=== PATIENT | male | born 1950 | race Caucasian/White ===

== ENCOUNTER 2017-12-22 21:28 | Inpatient (IN) | payer OTHER ==
[~2017-12-22] VITALS: Ht 190.5 cm; Wt 105.0 kg
[2017-12-22] MEDS ORDERED: SODIUM CHLORIDE 0.9% 1,000ML IVBOLUS ONE (22:00)
[2017-12-22] MEDS ORDERED: PIPERACILLIN/TAZO/PMX 3.375GM 50 ML IVPB ONE (22:00)
[2017-12-22] MEDS ORDERED: VANCOMYCIN PER PHARMACY IV ONE (22:00)
[2017-12-22] MEDS ORDERED: PIPERACILLIN/TAZO/PMX 3.375GM 50 ML ONE (22:07)
[2017-12-22 22:16] LABS: BASOPHILS # (AUTO) 0.03 x10^3/uL (0-0.1); BASOPHILS % (AUTO) 0 % (0-1); EOSINOPHILS # (AUTO) 0.06 x10^3/uL (0-0.4); EOSINOPHILS % (AUTO) 0 % (1-7); LYMPHOCYTES % (AUTO) 13 % (22-44); MD NO; MEAN CORPUSCULAR HEMOGLOBIN 30.8 pg (27.5-34.5); MEAN CORPUSCULAR HGB CONC 34.4 g/dL (33.2-36.2); MEAN CORPUSCULAR VOLUME 89.4 fL (81-97); MEAN PLATELET VOLUME 7.8 fL (7.4-10.4); MONOCYTES % (AUTO) 8 % (2-9); NEUTROPHILS # (AUTO) 9.76 x10^3/uL (1.8-6.8); NEUTROPHILS % (AUTO) 79 % (42-75); PLATELET COUNT 367 x10^3/uL (130-400); RED BLOOD COUNT 4.34 x10^6/uL (4.38-5.82)
[2017-12-22 22:20] LABS: INTERNATIONAL NORMALIZED RATIO 1.02 (0.93-1.1); PROTHROMBIN TIME 10.5 Seconds (9.6-11.5)
[2017-12-22 22:26] LABS: ALANINE AMINOTRANSFERASE 17 U/L (12-78); ALBUMIN 2.9 g/dL (3.4-5.0); ANION GAP 7 mmol/L (5-15); CALCIUM 8.6 mg/dL (8.5-10.1); CHLORIDE 98 mmol/L (98-107); CREATININE 1.04 mg/dL (0.7-1.3)
[2017-12-22 22:29] LABS: ALKALINE PHOSPHATASE 107 U/L (45-117); BILIRUBIN,TOTAL 0.5 mg/dL (0.2-1.0); TOTAL PROTEIN 7.4 g/dL (6.4-8.2)
[2017-12-22] MEDS ORDERED: VANCOMYCIN 1,700 MG in SODIUM CHLORIDE 0.9% 250 ML IV ONE (22:30)
[2017-12-22] MEDS ORDERED: INSULIN REGULAR 100 UNITS/ML, 3ML VIAL IVPush ONE (23:00)
[2017-12-22] MEDS ORDERED: INSULIN REGULAR 100 UNITS/ML, 3ML VIAL ONE (23:02)
[2017-12-23 01:25] VITALS: BP 134/74
[2017-12-23 01:30] VITALS: BP 134/74
[2017-12-23] MEDS ORDERED: DOCUSATE 100 MG CAPSULE PO PRN (01:30)
[2017-12-23] MEDS ORDERED: PROMETHAZINE 25 MG/ML, 1ML IM PRN (01:30)
[2017-12-23] MEDS ORDERED: POLYETHYLENE GLYCOL 17 GM PACKET PO PRN (01:30)
[2017-12-23] MEDS ORDERED: LABETALOL 5MG/ML, 20ML IVPush PRN (01:30)
[2017-12-23] MEDS ORDERED: morphine SULFATE 10 MG/ML, 1ML IVPush PRN (01:30)
[2017-12-23] MEDS ORDERED: BISACODYL 10 MG SUPP PR PRN (01:30)
[2017-12-23] MEDS ORDERED: ONDANSETRON ODT 4 MG PO PRN (01:30)
[2017-12-23] MEDS ORDERED: ACETAMINOPHEN 325 MG TABLET PO PRN (01:30)
[2017-12-23] MEDS ORDERED: OXYcodone IR 5MG TABLET PO PRN (01:30)
[2017-12-23] MEDS ORDERED: GABAPENTIN 300 MG CAPSULE PO PRN (01:30)
[2017-12-23] MEDS: ENOXAPARIN 40 MG/0.4 ML SQ SCH ×2 (01:30→19:59)
[2017-12-23] MEDS ORDERED: ONDANSETRON 2MG/ML, 2ML IVPush PRN (01:30)
[2017-12-23] MEDS ORDERED: VANCOMYCIN PER PHARMACY MC PRN (02:00)
[2017-12-23] MEDS ORDERED: INSULIN GLARGINE 100 UNITS/ML, PEN SQ-INSULIN SCH (02:00)
[2017-12-23 02:08] LABS: HCT (SEDRATE) 38.8 % (39.2-51.8)
[2017-12-23 02:30] LABS: C-REACTIVE PROTEIN, QUANT 5.8 mg/dL (0.02-0.49); FREE T4 (FREE THYROXINE) 1.17 ng/dL (0.76-1.46); THYROID STIMULATING HORMONE 2.85 mIU/L (0.358-3.740)
[2017-12-23] MEDS: SODIUM CHLORIDE 0.9% 1,000 ML IV SCH ×3 (03:03→15:29)
[2017-12-23] MEDS: PIPERACILLIN/TAZO/PMX 3.375GM 50 ML IV SCH ×3 (04:37→18:21)
[2017-12-23] MEDS ORDERED: PHARMACOKINETIC CONSULTATION MC ONE (05:00)
[2017-12-23] MEDS ORDERED: PHARMACOKINETIC MONITORING MC PRN (05:00)
[2017-12-23 05:03] LABS: BASOPHILS # (AUTO) 0.03 x10^3/uL (0-0.1); BASOPHILS % (AUTO) 0 % (0-1); EOSINOPHILS # (AUTO) 0.08 x10^3/uL (0-0.4); EOSINOPHILS % (AUTO) 1 % (1-7); LYMPHOCYTES # (AUTO) 1.76 x10^3/uL (1-3.4); LYMPHOCYTES % (AUTO) 16 % (22-44); MD NO; MEAN CORPUSCULAR HEMOGLOBIN 30.6 pg (27.5-34.5); MEAN CORPUSCULAR HGB CONC 34.5 g/dL (33.2-36.2); MEAN CORPUSCULAR VOLUME 88.7 fL (81-97); MEAN PLATELET VOLUME 7.7 fL (7.4-10.4); MONOCYTES # (AUTO) 0.97 x10^3/uL (0.2-0.8); MONOCYTES % (AUTO) 9 % (2-9); NEUTROPHILS # (AUTO) 7.97 x10^3/uL (1.8-6.8); NEUTROPHILS % (AUTO) 74 % (42-75); PLATELET COUNT 317 x10^3/uL (130-400); RED BLOOD COUNT 4.09 x10^6/uL (4.38-5.82); RED CELL DISTRIBUTION WIDTH 12.9 % (9.4-14.8)
[2017-12-23 05:13] LABS: ALBUMIN 2.6 g/dL (3.4-5.0); ANION GAP 6 mmol/L (5-15); CALCIUM 7.9 mg/dL (8.5-10.1); CHLORIDE 105 mmol/L (98-107)
[2017-12-23 05:18] LABS: ALANINE AMINOTRANSFERASE 15 U/L (12-78); ALKALINE PHOSPHATASE 93 U/L (45-117); BILIRUBIN,TOTAL 0.6 mg/dL (0.2-1.0); CHOLESTEROL, TOTAL 179 mg/dL (140-239); CREATININE 0.76 mg/dL (0.7-1.3); HDL CHOL % 25 % (26-37); HDL CHOLESTEROL (DIRECT) 45 mg/dL (40-60); LDL CHOLESTEROL,CALCULATED 114 mg/dL (54-169); LDL/HDL RATIO 2.5 (0.5-3.0); TOTAL PROTEIN 6.6 g/dL (6.4-8.2); TRIGLYCERIDES 101 mg/dL (50-200); VLDL CHOLESTEROL 20 mg/dL (0-25)
[2017-12-23 08:15] VITALS: BP 137/77
[2017-12-23] MEDS: INSULIN LISPRO 100 UNITS/ML, PEN SQ-INSULIN SCH ×4 (09:16→19:59)
[2017-12-23] MEDS: INSULIN GLARGINE 100 UNITS/ML, PEN SQ-INSULIN SCH ×2 (11:37→19:58)
[2017-12-23 14:06] VITALS: BP 124/81
[2017-12-23 19:22] VITALS: BP 127/69
[2017-12-23] MEDS: VANCOMYCIN 1,700 MG in SODIUM CHLORIDE 0.9% 250 ML IV SCH (23:02)
[2017-12-24] MEDS: PIPERACILLIN/TAZO/PMX 3.375GM 50 ML IV SCH ×4 (01:02→21:20)
[2017-12-24 01:10] VITALS: BP 137/77
[2017-12-24 07:38] VITALS: BP 137/75
[2017-12-24] MEDS: INSULIN LISPRO 100 UNITS/ML, PEN SQ-INSULIN SCH ×4 (08:55→21:21)
[2017-12-24] MEDS: INSULIN GLARGINE 100 UNITS/ML, PEN SQ-INSULIN SCH ×2 (08:56→21:21)
[2017-12-24 15:20] VITALS: BP 132/78
[2017-12-24] MEDS: VANCOMYCIN 1,700 MG in SODIUM CHLORIDE 0.9% 250 ML IV SCH (17:32)
[2017-12-24 19:36] VITALS: BP 139/79
[2017-12-24] MEDS: ENOXAPARIN 40 MG/0.4 ML SQ SCH (21:20)
[2017-12-25 01:35] VITALS: BP 132/76
[2017-12-25] MEDS: PIPERACILLIN/TAZO/PMX 3.375GM 50 ML IV SCH ×2 (02:50→10:36)
[2017-12-25 07:24] VITALS: BP 125/70
[2017-12-25] MEDS: INSULIN LISPRO 100 UNITS/ML, PEN SQ-INSULIN SCH ×4 (07:30→20:27)
[2017-12-25] MEDS: INSULIN GLARGINE 100 UNITS/ML, PEN SQ-INSULIN SCH ×2 (10:37→20:28)
[2017-12-25] MEDS: VANCOMYCIN 1,700 MG in SODIUM CHLORIDE 0.9% 250 ML IV SCH (11:22)
[2017-12-25 12:45] VITALS: BP 125/79
[2017-12-25] MEDS: LACTOBACILLUS CHEW TABLET PO SCH ×3 (15:50→20:24)
[2017-12-25] MEDS: AMPICILLIN/SULBACTAM 3 GM in SODIUM CHLORIDE 0.9% 100 ML IV SCH ×2 (16:44→23:01)
[2017-12-25 17:24] LABS: CLOSTRIDIUM DIFFICILE ANTIGEN NEGATIVE; CLOSTRIDIUM DIFFICILE TOXIN NEGATIVE (Negative)
[2017-12-25 19:19] VITALS: BP 120/71
[2017-12-25] MEDS: ENOXAPARIN 40 MG/0.4 ML SQ SCH (20:24)
[2017-12-26 01:15] VITALS: BP 127/74
[2017-12-26] MEDS: AMPICILLIN/SULBACTAM 3 GM in SODIUM CHLORIDE 0.9% 100 ML IV SCH ×4 (04:35→23:43)
[2017-12-26 07:15] VITALS: BP 135/80
[2017-12-26] MEDS: LACTOBACILLUS CHEW TABLET PO SCH ×3 (07:47→21:15)
[2017-12-26] MEDS: INSULIN LISPRO 100 UNITS/ML, PEN SQ-INSULIN SCH ×4 (07:48→21:16)
[2017-12-26] MEDS: INSULIN GLARGINE 100 UNITS/ML, PEN SQ-INSULIN SCH ×2 (07:49→21:16)
[2017-12-26 12:38] VITALS: BP 122/73
[2017-12-26 19:22] VITALS: BP 142/83
[2017-12-26] MEDS: ENOXAPARIN 40 MG/0.4 ML SQ SCH (21:00)
[2017-12-27 01:56] VITALS: BP 137/73
[2017-12-27] MEDS: AMPICILLIN/SULBACTAM 3 GM in SODIUM CHLORIDE 0.9% 100 ML IV SCH ×4 (04:32→23:20)
[2017-12-27] MEDS: INSULIN LISPRO 100 UNITS/ML, PEN SQ-INSULIN SCH ×4 (07:45→21:14)
[2017-12-27] MEDS: LACTOBACILLUS CHEW TABLET PO SCH ×3 (08:12→21:13)
[2017-12-27] MEDS: INSULIN GLARGINE 100 UNITS/ML, PEN SQ-INSULIN SCH ×2 (08:14→21:00)
[2017-12-27 08:27] VITALS: BP 108/66
[2017-12-27] MEDS ORDERED: GADOBUTROL 10 MMOL/10 ML PFS ONE (12:16)
[2017-12-27 12:45] VITALS: BP 124/76
[2017-12-27] MEDS: SODIUM CHLORIDE 0.9% 1,000 ML IV SCH ×2 (13:37→23:20)
[2017-12-27 20:37] VITALS: BP 139/75
[2017-12-27] MEDS ORDERED: INSULIN GLARGINE 100 UNITS/ML, PEN SQ-INSULIN SCH (21:00)
[2017-12-27] MEDS: ENOXAPARIN 40 MG/0.4 ML SQ SCH (21:00)
[2017-12-28 02:23] VITALS: BP 137/78
[2017-12-28] MEDS: AMPICILLIN/SULBACTAM 3 GM in SODIUM CHLORIDE 0.9% 100 ML IV SCH ×4 (05:22→22:53)
[2017-12-28] MEDS: LACTOBACILLUS CHEW TABLET PO SCH ×3 (08:02→20:10)
[2017-12-28] MEDS: INSULIN GLARGINE 100 UNITS/ML, PEN SQ-INSULIN SCH (08:02)
[2017-12-28 08:17] VITALS: BP 133/80
[2017-12-28] MEDS: SODIUM CHLORIDE 0.9% 1,000 ML IV SCH (08:44)
[2017-12-28] MEDS: INSULIN LISPRO 100 UNITS/ML, PEN SQ-INSULIN SCH ×4 (08:44→20:11)
[2017-12-28 12:34] VITALS: BP 119/72
[2017-12-28] MEDS ORDERED: INSULIN GLARGINE 100 UNITS/ML, PEN SQ-INSULIN ONE (17:00)
[2017-12-28 18:58] VITALS: BP 131/76
[2017-12-28] MEDS: ENOXAPARIN 40 MG/0.4 ML SQ SCH (20:10)
[2017-12-29 01:36] VITALS: BP 125/75
[2017-12-29] MEDS: AMPICILLIN/SULBACTAM 3 GM in SODIUM CHLORIDE 0.9% 100 ML IV SCH ×3 (04:23→17:54)
[2017-12-29] MEDS: LACTOBACILLUS CHEW TABLET PO SCH ×3 (08:20→19:45)
[2017-12-29] MEDS: INSULIN LISPRO 100 UNITS/ML, PEN SQ-INSULIN SCH ×4 (08:24→19:46)
[2017-12-29 09:30] VITALS: BP 115/73
[2017-12-29] MEDS ORDERED: FENTANYL PF 100 MCG/2ML ONE (10:36)
[2017-12-29] MEDS ORDERED: PROPOFOL 10 MG/ML, 20ML ONE ×3 (10:58)
[2017-12-29] MEDS ORDERED: PROMETHAZINE 25 MG SUPP PR PRN (11:30)
[2017-12-29] MEDS ORDERED: ONDANSETRON ODT 8 MG PO PRN (11:30)
[2017-12-29] MEDS ORDERED: LABETALOL 5MG/ML, 20ML IV PRN (11:30)
[2017-12-29] MEDS ORDERED: ACETAMINOPHEN 325 MG TABLET PO PRN (11:30)
[2017-12-29] MEDS ORDERED: OXYcodone 5 MG/5 ML ORAL.SOL UDC PO PRN (11:30)
[2017-12-29] MEDS ORDERED: MORPHINE SULFATE 4 MG/ML, 1ML IVPush PRN (11:30)
[2017-12-29] MEDS ORDERED: EPHEDRINE 50 MG/ML, 1ML IM PRN (11:30)
[2017-12-29] MEDS ORDERED: MIDAZOLAM 1 MG/ML, 2ML IV PRN (11:30)
[2017-12-29] MEDS ORDERED: PROMETHAZINE 12.5 MG SUPP PR PRN (11:30)
[2017-12-29] MEDS ORDERED: FENTANYL PF 100 MCG/2ML IV PRN (11:30)
[2017-12-29] MEDS ORDERED: PROMETHAZINE 25 MG/ML, 1ML IV PRN (11:30)
[2017-12-29] MEDS ORDERED: EPHEDRINE 50 MG/ML, 1ML IVPush PRN (11:30)
[2017-12-29 12:04] VITALS: BP 126/77
[2017-12-29 19:01] VITALS: BP 117/69
[2017-12-29] MEDS: ENOXAPARIN 40 MG/0.4 ML SQ SCH (19:40)
[2017-12-29] MEDS: INSULIN GLARGINE 100 UNITS/ML, PEN SQ-INSULIN SCH (19:46)
[2017-12-30] MEDS: AMPICILLIN/SULBACTAM 3 GM in SODIUM CHLORIDE 0.9% 100 ML IV SCH ×4 (00:23→18:06)
[2017-12-30 00:58] VITALS: BP 113/65
[2017-12-30 05:35] LABS: BASOPHILS # (AUTO) 0.03 x10^3/uL (0-0.1); BASOPHILS % (AUTO) 0 % (0-1); EOSINOPHILS % (AUTO) 2 % (1-7); LYMPHOCYTES # (AUTO) 2.11 x10^3/uL (1-3.4); LYMPHOCYTES % (AUTO) 23 % (22-44); MD NO; MEAN CORPUSCULAR HEMOGLOBIN 30.3 pg (27.5-34.5); MEAN CORPUSCULAR HGB CONC 34.2 g/dL (33.2-36.2); MEAN CORPUSCULAR VOLUME 88.6 fL (81-97); MEAN PLATELET VOLUME 7.1 fL (7.4-10.4); MONOCYTES # (AUTO) 0.69 x10^3/uL (0.2-0.8); MONOCYTES % (AUTO) 7 % (2-9); NEUTROPHILS # (AUTO) 6.33 x10^3/uL (1.8-6.8); NEUTROPHILS % (AUTO) 68 % (42-75); PLATELET COUNT 502 x10^3/uL (130-400); RED BLOOD COUNT 4.44 x10^6/uL (4.38-5.82); RED CELL DISTRIBUTION WIDTH 13.5 % (9.4-14.8)
[2017-12-30 05:44] LABS: ANION GAP 4 mmol/L (5-15); CALCIUM 8.7 mg/dL (8.5-10.1); CHLORIDE 106 mmol/L (98-107); CREATININE 1.07 mg/dL (0.7-1.3)
[2017-12-30] MEDS: LACTOBACILLUS CHEW TABLET PO SCH ×3 (08:01→21:07)
[2017-12-30] MEDS: INSULIN LISPRO 100 UNITS/ML, PEN SQ-INSULIN SCH ×4 (08:07→21:07)
[2017-12-30 08:10] VITALS: BP 107/71
[2017-12-30 13:17] VITALS: BP 114/67
[2017-12-30 20:58] VITALS: BP 113/69
[2017-12-30] MEDS: INSULIN GLARGINE 100 UNITS/ML, PEN SQ-INSULIN SCH (21:06)
[2017-12-30] MEDS: ENOXAPARIN 40 MG/0.4 ML SQ SCH (21:07)
[2017-12-31] MEDS: AMPICILLIN/SULBACTAM 3 GM in SODIUM CHLORIDE 0.9% 100 ML IV SCH ×4 (00:14→17:47)
[2017-12-31 01:08] VITALS: BP 126/76
[2017-12-31] MEDS: LACTOBACILLUS CHEW TABLET PO SCH ×3 (07:35→20:56)
[2017-12-31] MEDS: INSULIN LISPRO 100 UNITS/ML, PEN SQ-INSULIN SCH ×4 (07:37→20:57)
[2017-12-31 07:38] VITALS: BP 106/69
[2017-12-31] MEDS ORDERED: VANCOMYCIN PER PHARMACY MC PRN (12:30)
[2017-12-31] MEDS ORDERED: PHARMACOKINETIC MONITORING MC PRN (13:30)
[2017-12-31] MEDS ORDERED: PHARMACOKINETIC CONSULTATION MC ONE (13:30)
[2017-12-31] MEDS ORDERED: VANCOMYCIN 1,700 MG in SODIUM CHLORIDE 0.9% 250 ML IV SCH (14:00)
[2017-12-31 14:14] VITALS: BP 106/65
[2017-12-31 20:00] VITALS: BP 118/68
[2017-12-31] MEDS: ENOXAPARIN 40 MG/0.4 ML SQ SCH (20:59)
[2017-12-31] MEDS: INSULIN GLARGINE 100 UNITS/ML, PEN SQ-INSULIN SCH (20:59)
[2018-01-01] MEDS: AMPICILLIN/SULBACTAM 3 GM in SODIUM CHLORIDE 0.9% 100 ML IV SCH ×5 (00:01→23:54)
[2018-01-01 02:20] VITALS: BP 119/71
[2018-01-01 04:40] LABS: BASOPHILS # (AUTO) 0.03 x10^3/uL (0-0.1); BASOPHILS % (AUTO) 0 % (0-1); EOSINOPHILS # (AUTO) 0.15 x10^3/uL (0-0.4); EOSINOPHILS % (AUTO) 2 % (1-7); LYMPHOCYTES # (AUTO) 1.88 x10^3/uL (1-3.4); LYMPHOCYTES % (AUTO) 21 % (22-44); MD NO; MEAN CORPUSCULAR HEMOGLOBIN 30.3 pg (27.5-34.5); MONOCYTES # (AUTO) 0.72 x10^3/uL (0.2-0.8); MONOCYTES % (AUTO) 8 % (2-9); NEUTROPHILS # (AUTO) 6.05 x10^3/uL (1.8-6.8); NEUTROPHILS % (AUTO) 68 % (42-75); PLATELET COUNT 457 x10^3/uL (130-400); RED BLOOD COUNT 4.36 x10^6/uL (4.38-5.82); RED CELL DISTRIBUTION WIDTH 13.4 % (9.4-14.8)
[2018-01-01 07:51] VITALS: BP 123/76
[2018-01-01] MEDS: INSULIN LISPRO 100 UNITS/ML, PEN SQ-INSULIN SCH ×4 (07:59→20:15)
[2018-01-01] MEDS: LACTOBACILLUS CHEW TABLET PO SCH ×3 (09:48→20:15)
[2018-01-01 12:53] VITALS: BP 120/71
[2018-01-01 19:00] VITALS: BP 124/72
[2018-01-01] MEDS: INSULIN GLARGINE 100 UNITS/ML, PEN SQ-INSULIN SCH (20:15)
[2018-01-01] MEDS: ENOXAPARIN 40 MG/0.4 ML SQ SCH (20:15)
[2018-01-02 01:50] VITALS: BP 113/66
[2018-01-02 05:26] LABS: BASOPHILS # (AUTO) 0.03 x10^3/uL (0-0.1); BASOPHILS % (AUTO) 0 % (0-1); EOSINOPHILS # (AUTO) 0.21 x10^3/uL (0-0.4); EOSINOPHILS % (AUTO) 2 % (1-7); LYMPHOCYTES # (AUTO) 1.86 x10^3/uL (1-3.4); LYMPHOCYTES % (AUTO) 21 % (22-44); MD NO; MEAN CORPUSCULAR HEMOGLOBIN 30.1 pg (27.5-34.5); MEAN CORPUSCULAR HGB CONC 34.3 g/dL (33.2-36.2); MEAN CORPUSCULAR VOLUME 87.6 fL (81-97); MONOCYTES # (AUTO) 0.75 x10^3/uL (0.2-0.8); MONOCYTES % (AUTO) 8 % (2-9); NEUTROPHILS # (AUTO) 6.13 x10^3/uL (1.8-6.8); NEUTROPHILS % (AUTO) 68 % (42-75); PLATELET COUNT 448 x10^3/uL (130-400); RED BLOOD COUNT 4.56 x10^6/uL (4.38-5.82); RED CELL DISTRIBUTION WIDTH 13.9 % (9.4-14.8)
[2018-01-02 05:27] LABS: ALANINE AMINOTRANSFERASE 20 U/L (12-78); ALBUMIN 2.8 g/dL (3.4-5.0); ANION GAP 5 mmol/L (5-15); CALCIUM 8.8 mg/dL (8.5-10.1); CHLORIDE 105 mmol/L (98-107); CREATININE 0.82 mg/dL (0.7-1.3)
[2018-01-02 05:30] LABS: ALKALINE PHOSPHATASE 65 U/L (45-117); BILIRUBIN,TOTAL 0.5 mg/dL (0.2-1.0); TOTAL PROTEIN 7.3 g/dL (6.4-8.2)
[2018-01-02] MEDS: AMPICILLIN/SULBACTAM 3 GM in SODIUM CHLORIDE 0.9% 100 ML IV SCH ×3 (06:00→17:33)
[2018-01-02] MEDS: INSULIN LISPRO 100 UNITS/ML, PEN SQ-INSULIN SCH ×4 (07:00→21:13)
[2018-01-02 07:05] VITALS: BP 122/72
[2018-01-02] MEDS: LACTOBACILLUS CHEW TABLET PO SCH ×3 (07:52→21:13)
[2018-01-02 14:29] VITALS: BP 119/68
[2018-01-02 20:15] VITALS: BP 129/74
[2018-01-02] MEDS: ENOXAPARIN 40 MG/0.4 ML SQ SCH (21:00)
[2018-01-02] MEDS: INSULIN GLARGINE 100 UNITS/ML, PEN SQ-INSULIN SCH (21:13)
[2018-01-03] MEDS: AMPICILLIN/SULBACTAM 3 GM in SODIUM CHLORIDE 0.9% 100 ML IV SCH ×4 (00:32→18:17)
[2018-01-03 02:00] VITALS: BP 132/77
[2018-01-03] MEDS: INSULIN LISPRO 100 UNITS/ML, PEN SQ-INSULIN SCH ×4 (07:00→20:53)
[2018-01-03 07:18] VITALS: BP 123/72
[2018-01-03] MEDS: LACTOBACILLUS CHEW TABLET PO SCH ×3 (07:45→20:48)
[2018-01-03 12:54] VITALS: BP 115/70
[2018-01-03 19:10] VITALS: BP 124/72
[2018-01-03] MEDS: ENOXAPARIN 40 MG/0.4 ML SQ SCH (20:48)
[2018-01-03] MEDS ORDERED: INSULIN GLARGINE 100 UNITS/ML, PEN SQ-INSULIN SCH (21:00)
[2018-01-04] MEDS: AMPICILLIN/SULBACTAM 3 GM in SODIUM CHLORIDE 0.9% 100 ML IV SCH ×5 (00:12→23:27)
[2018-01-04 04:28] VITALS: BP 99/65
[2018-01-04] MEDS: LACTOBACILLUS CHEW TABLET PO SCH ×3 (07:53→20:06)
[2018-01-04] MEDS: INSULIN LISPRO 100 UNITS/ML, PEN SQ-INSULIN SCH ×4 (08:00→20:07)
[2018-01-04 08:04] VITALS: BP 124/79
[2018-01-04 13:49] VITALS: BP 105/68
[2018-01-04 19:55] VITALS: BP 108/72
[2018-01-04] MEDS: ENOXAPARIN 40 MG/0.4 ML SQ SCH (20:00)
[2018-01-04] MEDS ORDERED: INSULIN GLARGINE 100 UNITS/ML, PEN SQ-INSULIN SCH (21:00)
[2018-01-05 02:35] VITALS: BP 114/75
[2018-01-05] MEDS: AMPICILLIN/SULBACTAM 3 GM in SODIUM CHLORIDE 0.9% 100 ML IV SCH ×3 (05:47→17:34)
[2018-01-05] MEDS: LACTOBACILLUS CHEW TABLET PO SCH ×3 (07:33→21:49)
[2018-01-05] MEDS: INSULIN LISPRO 100 UNITS/ML, PEN SQ-INSULIN SCH ×4 (07:34→21:51)
[2018-01-05 09:21] VITALS: BP 112/72
[2018-01-05 13:48] VITALS: BP 118/71
[2018-01-05 19:34] VITALS: BP 112/68
[2018-01-05] MEDS ORDERED: INSULIN GLARGINE 100 UNITS/ML, PEN SQ-INSULIN SCH (21:00)
[2018-01-05] MEDS: ENOXAPARIN 40 MG/0.4 ML SQ SCH (21:00)
[2018-01-06] MEDS: AMPICILLIN/SULBACTAM 3 GM in SODIUM CHLORIDE 0.9% 100 ML IV SCH ×4 (00:18→18:08)
[2018-01-06 02:23] VITALS: BP 114/70
[2018-01-06] MEDS: INSULIN LISPRO 100 UNITS/ML, PEN SQ-INSULIN SCH ×4 (07:00→21:27)
[2018-01-06 07:04] VITALS: BP 119/74
[2018-01-06] MEDS: LACTOBACILLUS CHEW TABLET PO SCH ×3 (12:05→21:26)
[2018-01-06 12:43] VITALS: BP 127/74
[2018-01-06 19:51] VITALS: BP 131/79
[2018-01-06] MEDS ORDERED: INSULIN GLARGINE 100 UNITS/ML, PEN SQ-INSULIN SCH (21:00)
[2018-01-06] MEDS: ENOXAPARIN 40 MG/0.4 ML SQ SCH (21:00)
[2018-01-06] MEDS: INSULIN GLARGINE 100 UNITS/ML, PEN SQ-INSULIN SCH (21:28)
[2018-01-07] MEDS: AMPICILLIN/SULBACTAM 3 GM in SODIUM CHLORIDE 0.9% 100 ML IV SCH ×4 (00:06→17:58)
[2018-01-07 01:28] VITALS: BP 126/75
[2018-01-07 05:39] LABS: ANION GAP 5 mmol/L (5-15); CALCIUM 9.2 mg/dL (8.5-10.1); CHLORIDE 108 mmol/L (98-107)
[2018-01-07 05:47] LABS: BASOPHILS # (AUTO) 0.03 x10^3/uL (0-0.1); BASOPHILS % (AUTO) 0 % (0-1); EOSINOPHILS # (AUTO) 0.14 x10^3/uL (0-0.4); EOSINOPHILS % (AUTO) 2 % (1-7); LYMPHOCYTES # (AUTO) 1.84 x10^3/uL (1-3.4); LYMPHOCYTES % (AUTO) 22 % (22-44); MD NO; MEAN CORPUSCULAR HEMOGLOBIN 30.2 pg (27.5-34.5); MEAN CORPUSCULAR HGB CONC 34.4 g/dL (33.2-36.2); MEAN CORPUSCULAR VOLUME 87.8 fL (81-97); MEAN PLATELET VOLUME 7.7 fL (7.4-10.4); MONOCYTES # (AUTO) 0.57 x10^3/uL (0.2-0.8); MONOCYTES % (AUTO) 7 % (2-9); NEUTROPHILS # (AUTO) 5.87 x10^3/uL (1.8-6.8); NEUTROPHILS % (AUTO) 70 % (42-75); PLATELET COUNT 371 x10^3/uL (130-400); RED BLOOD COUNT 4.61 x10^6/uL (4.38-5.82); RED CELL DISTRIBUTION WIDTH 13.1 % (9.4-14.8)
[2018-01-07 05:49] LABS: ALANINE AMINOTRANSFERASE 21 U/L (12-78); ALBUMIN 2.8 g/dL (3.4-5.0); ALKALINE PHOSPHATASE 72 U/L (45-117); BILIRUBIN,TOTAL 0.4 mg/dL (0.2-1.0); CREATININE 0.92 mg/dL (0.7-1.3); TOTAL PROTEIN 7.2 g/dL (6.4-8.2)
[2018-01-07] MEDS: INSULIN LISPRO 100 UNITS/ML, PEN SQ-INSULIN SCH ×4 (07:00→21:35)
[2018-01-07 07:18] VITALS: BP 112/65
[2018-01-07] MEDS: LACTOBACILLUS CHEW TABLET PO SCH ×3 (11:39→21:25)
[2018-01-07 14:02] VITALS: BP 108/62
[2018-01-07 19:25] VITALS: BP 130/72
[2018-01-07] MEDS: ENOXAPARIN 40 MG/0.4 ML SQ SCH (21:00)
[2018-01-07] MEDS: INSULIN GLARGINE 100 UNITS/ML, PEN SQ-INSULIN SCH (21:36)
[2018-01-08] MEDS: AMPICILLIN/SULBACTAM 3 GM in SODIUM CHLORIDE 0.9% 100 ML IV SCH ×4 (00:36→18:07)
[2018-01-08 01:49] VITALS: BP 119/73
[2018-01-08 06:55] LABS: BASOPHILS # (AUTO) 0.03 x10^3/uL (0-0.1); BASOPHILS % (AUTO) 0 % (0-1); EOSINOPHILS # (AUTO) 0.09 x10^3/uL (0-0.4); EOSINOPHILS % (AUTO) 1 % (1-7); LYMPHOCYTES # (AUTO) 1.94 x10^3/uL (1-3.4); LYMPHOCYTES % (AUTO) 22 % (22-44); MD NO; MEAN CORPUSCULAR HEMOGLOBIN 30.4 pg (27.5-34.5); MEAN CORPUSCULAR HGB CONC 34.2 g/dL (33.2-36.2); MEAN CORPUSCULAR VOLUME 88.8 fL (81-97); MEAN PLATELET VOLUME 7.6 fL (7.4-10.4); MONOCYTES # (AUTO) 0.59 x10^3/uL (0.2-0.8); MONOCYTES % (AUTO) 7 % (2-9); NEUTROPHILS # (AUTO) 6.25 x10^3/uL (1.8-6.8); NEUTROPHILS % (AUTO) 70 % (42-75); PLATELET COUNT 365 x10^3/uL (130-400); RED BLOOD COUNT 4.57 x10^6/uL (4.38-5.82); RED CELL DISTRIBUTION WIDTH 13.6 % (9.4-14.8)
[2018-01-08] MEDS: INSULIN LISPRO 100 UNITS/ML, PEN SQ-INSULIN SCH ×4 (07:00→21:03)
[2018-01-08 07:05] LABS: ALBUMIN 2.9 g/dL (3.4-5.0); ANION GAP 5 mmol/L (5-15); CALCIUM 8.9 mg/dL (8.5-10.1); CHLORIDE 108 mmol/L (98-107)
[2018-01-08 07:09] LABS: ALANINE AMINOTRANSFERASE 22 U/L (12-78); ALKALINE PHOSPHATASE 69 U/L (45-117); BILIRUBIN,TOTAL 0.7 mg/dL (0.2-1.0); CREATININE 0.88 mg/dL (0.7-1.3); TOTAL PROTEIN 7.2 g/dL (6.4-8.2)
[2018-01-08 07:41] VITALS: BP 128/74
[2018-01-08] MEDS: LACTOBACILLUS CHEW TABLET PO SCH ×3 (10:23→21:00)
[2018-01-08 15:12] VITALS: BP 116/67
[2018-01-08 19:58] VITALS: BP 116/74
[2018-01-08] MEDS: ENOXAPARIN 40 MG/0.4 ML SQ SCH (21:00)
[2018-01-08] MEDS: INSULIN GLARGINE 100 UNITS/ML, PEN SQ-INSULIN SCH (21:01)
[2018-01-09] MEDS: AMPICILLIN/SULBACTAM 3 GM in SODIUM CHLORIDE 0.9% 100 ML IV SCH ×4 (00:18→21:15)
[2018-01-09 01:16] VITALS: BP 110/68
[2018-01-09 06:40] LABS: BASOPHILS # (AUTO) 0.02 x10^3/uL (0-0.1); MD NO
[2018-01-09 06:46] LABS: BASOPHILS % (AUTO) 0 % (0-1); EOSINOPHILS # (AUTO) 0.14 x10^3/uL (0-0.4); EOSINOPHILS % (AUTO) 2 % (1-7); LYMPHOCYTES # (AUTO) 2.15 x10^3/uL (1-3.4); LYMPHOCYTES % (AUTO) 26 % (22-44); MEAN CORPUSCULAR HEMOGLOBIN 30.1 pg (27.5-34.5); MEAN CORPUSCULAR HGB CONC 34.1 g/dL (33.2-36.2); MEAN CORPUSCULAR VOLUME 88.1 fL (81-97); MEAN PLATELET VOLUME 7.5 fL (7.4-10.4); MONOCYTES # (AUTO) 0.63 x10^3/uL (0.2-0.8); MONOCYTES % (AUTO) 8 % (2-9); NEUTROPHILS # (AUTO) 5.46 x10^3/uL (1.8-6.8); NEUTROPHILS % (AUTO) 65 % (42-75); PLATELET COUNT 359 x10^3/uL (130-400); RED BLOOD COUNT 4.67 x10^6/uL (4.38-5.82); RED CELL DISTRIBUTION WIDTH 13.6 % (9.4-14.8)
[2018-01-09 06:47] LABS: HCT (SEDRATE) 41.1 % (39.2-51.8)
[2018-01-09 06:51] LABS: ALBUMIN 2.9 g/dL (3.4-5.0); ANION GAP 7 mmol/L (5-15); CALCIUM 8.7 mg/dL (8.5-10.1); CHLORIDE 107 mmol/L (98-107)
[2018-01-09 06:54] LABS: ALANINE AMINOTRANSFERASE 21 U/L (12-78); ALKALINE PHOSPHATASE 70 U/L (45-117); BILIRUBIN,TOTAL 0.5 mg/dL (0.2-1.0); C-REACTIVE PROTEIN, QUANT 0.43 mg/dL (0.02-0.49); CREATININE 0.92 mg/dL (0.7-1.3); TOTAL PROTEIN 7.3 g/dL (6.4-8.2)
[2018-01-09 06:58] VITALS: BP 116/71
[2018-01-09] MEDS: INSULIN LISPRO 100 UNITS/ML, PEN SQ-INSULIN SCH ×4 (07:00→21:18)
[2018-01-09] MEDS: LACTOBACILLUS CHEW TABLET PO SCH ×3 (09:43→21:16)
[2018-01-09 12:27] VITALS: BP 108/73
[2018-01-09 20:02] VITALS: BP 108/73
[2018-01-09] MEDS: ENOXAPARIN 40 MG/0.4 ML SQ SCH (21:00)
[2018-01-09] MEDS: INSULIN GLARGINE 100 UNITS/ML, PEN SQ-INSULIN SCH (21:19)
[2018-01-10 01:21] VITALS: BP 101/68
[2018-01-10] MEDS: AMPICILLIN/SULBACTAM 3 GM in SODIUM CHLORIDE 0.9% 100 ML IV SCH ×4 (02:47→22:37)
[2018-01-10 07:23] VITALS: BP 91/60
[2018-01-10] MEDS: INSULIN LISPRO 100 UNITS/ML, PEN SQ-INSULIN SCH ×4 (07:38→22:36)
[2018-01-10] MEDS: LACTOBACILLUS CHEW TABLET PO SCH ×3 (09:33→22:37)
[2018-01-10 13:32] VITALS: BP 127/75
[2018-01-10 19:00] VITALS: BP 122/74
[2018-01-10] MEDS: ENOXAPARIN 40 MG/0.4 ML SQ SCH ×2 (21:00→22:37)
[2018-01-10] MEDS: INSULIN GLARGINE 100 UNITS/ML, PEN SQ-INSULIN SCH (23:10)
[2018-01-11 01:06] VITALS: BP 122/75
[2018-01-11] MEDS: AMPICILLIN/SULBACTAM 3 GM in SODIUM CHLORIDE 0.9% 100 ML IV SCH ×4 (04:13→20:27)
[2018-01-11] MEDS: INSULIN LISPRO 100 UNITS/ML, PEN SQ-INSULIN SCH ×4 (07:00→20:29)
[2018-01-11 07:48] VITALS: BP 122/74
[2018-01-11] MEDS: LACTOBACILLUS CHEW TABLET PO SCH ×3 (09:33→20:27)
[2018-01-11 12:09] VITALS: BP 127/80
[2018-01-11 19:00] VITALS: BP 138/82
[2018-01-11] MEDS: ENOXAPARIN 40 MG/0.4 ML SQ SCH (20:29)
[2018-01-11] MEDS: INSULIN GLARGINE 100 UNITS/ML, PEN SQ-INSULIN SCH (20:29)
[2018-01-12 01:22] VITALS: BP 116/74
[2018-01-12] MEDS: AMPICILLIN/SULBACTAM 3 GM in SODIUM CHLORIDE 0.9% 100 ML IV SCH ×4 (03:33→21:06)
[2018-01-12 06:55] VITALS: BP 127/75
[2018-01-12] MEDS: INSULIN LISPRO 100 UNITS/ML, PEN SQ-INSULIN SCH ×4 (07:00→21:18)
[2018-01-12] MEDS: LACTOBACILLUS CHEW TABLET PO SCH ×3 (09:42→21:06)
[2018-01-12 13:54] VITALS: BP 124/74
[2018-01-12 19:37] VITALS: BP 116/80
[2018-01-12] MEDS: ENOXAPARIN 40 MG/0.4 ML SQ SCH (21:00)
[2018-01-12] MEDS: INSULIN GLARGINE 100 UNITS/ML, PEN SQ-INSULIN SCH (21:18)
[2018-01-13 01:51] VITALS: BP 105/63
[2018-01-13] MEDS: AMPICILLIN/SULBACTAM 3 GM in SODIUM CHLORIDE 0.9% 100 ML IV SCH ×4 (02:50→19:50)
[2018-01-13 05:01] LABS: BASOPHILS # (AUTO) 0.02 x10^3/uL (0-0.1); BASOPHILS % (AUTO) 0 % (0-1); EOSINOPHILS % (AUTO) 2 % (1-7); LYMPHOCYTES # (AUTO) 1.88 x10^3/uL (1-3.4); LYMPHOCYTES % (AUTO) 19 % (22-44); MD NO; MEAN CORPUSCULAR HEMOGLOBIN 30.4 pg (27.5-34.5); MEAN CORPUSCULAR VOLUME 89.5 fL (81-97); MEAN PLATELET VOLUME 7.6 fL (7.4-10.4); MONOCYTES # (AUTO) 0.69 x10^3/uL (0.2-0.8); MONOCYTES % (AUTO) 7 % (2-9); NEUTROPHILS % (AUTO) 71 % (42-75); PLATELET COUNT 322 x10^3/uL (130-400); RED BLOOD COUNT 4.69 x10^6/uL (4.38-5.82); RED CELL DISTRIBUTION WIDTH 13.5 % (9.4-14.8)
[2018-01-13 05:12] LABS: ALBUMIN 2.9 g/dL (3.4-5.0); ANION GAP 6 mmol/L (5-15); CALCIUM 8.9 mg/dL (8.5-10.1); CHLORIDE 108 mmol/L (98-107)
[2018-01-13 05:13] LABS: CREATININE 0.87 mg/dL (0.7-1.3)
[2018-01-13] MEDS: INSULIN LISPRO 100 UNITS/ML, PEN SQ-INSULIN SCH ×4 (07:00→20:01)
[2018-01-13 07:02] VITALS: BP 130/81
[2018-01-13] MEDS: LACTOBACILLUS CHEW TABLET PO SCH ×3 (09:06→19:49)
[2018-01-13 13:46] VITALS: BP 114/69
[2018-01-13] MEDS: ENOXAPARIN 40 MG/0.4 ML SQ SCH (19:50)
[2018-01-13] MEDS: INSULIN GLARGINE 100 UNITS/ML, PEN SQ-INSULIN SCH (20:02)
[2018-01-13 20:05] VITALS: BP 136/73
[2018-01-14 00:56] VITALS: BP 133/56
[2018-01-14] MEDS: AMPICILLIN/SULBACTAM 3 GM in SODIUM CHLORIDE 0.9% 100 ML IV SCH ×4 (02:51→21:20)
[2018-01-14] MEDS: INSULIN LISPRO 100 UNITS/ML, PEN SQ-INSULIN SCH ×4 (07:00→19:59)
[2018-01-14 08:20] VITALS: BP 98/64
[2018-01-14] MEDS: LACTOBACILLUS CHEW TABLET PO SCH ×3 (08:55→19:56)
[2018-01-14 17:42] VITALS: BP 140/83
[2018-01-14 18:53] VITALS: BP 135/77
[2018-01-14] MEDS: ENOXAPARIN 40 MG/0.4 ML SQ SCH (19:55)
[2018-01-14] MEDS: INSULIN GLARGINE 100 UNITS/ML, PEN SQ-INSULIN SCH (20:03)
[2018-01-14 21:23] VITALS: BP 122/75
[2018-01-15 00:58] VITALS: BP 124/72
[2018-01-15] MEDS: AMPICILLIN/SULBACTAM 3 GM in SODIUM CHLORIDE 0.9% 100 ML IV SCH ×4 (02:43→21:00)
[2018-01-15] MEDS: INSULIN LISPRO 100 UNITS/ML, PEN SQ-INSULIN SCH ×4 (07:00→21:00)
[2018-01-15 07:01] VITALS: BP 117/75
[2018-01-15] MEDS: LACTOBACILLUS CHEW TABLET PO SCH ×3 (08:04→21:00)
[2018-01-15 12:07] VITALS: BP 121/78
[2018-01-15 19:47] VITALS: BP 115/72
[2018-01-15] MEDS: ENOXAPARIN 40 MG/0.4 ML SQ SCH (20:40)
[2018-01-15] MEDS: INSULIN GLARGINE 100 UNITS/ML, PEN SQ-INSULIN SCH (21:01)
[2018-01-16 00:46] VITALS: BP 112/70
[2018-01-16] MEDS: AMPICILLIN/SULBACTAM 3 GM in SODIUM CHLORIDE 0.9% 100 ML IV SCH ×4 (02:38→21:09)
[2018-01-16 06:57] VITALS: BP 108/69
[2018-01-16] MEDS: INSULIN LISPRO 100 UNITS/ML, PEN SQ-INSULIN SCH ×4 (08:06→21:09)
[2018-01-16] MEDS: LACTOBACILLUS CHEW TABLET PO SCH ×3 (08:56→21:08)
[2018-01-16 10:43] LABS: BASOPHILS # (AUTO) 0.02 x10^3/uL (0-0.1); BASOPHILS % (AUTO) 0 % (0-1); EOSINOPHILS # (AUTO) 0.18 x10^3/uL (0-0.4); EOSINOPHILS % (AUTO) 2 % (1-7); LYMPHOCYTES # (AUTO) 1.87 x10^3/uL (1-3.4); LYMPHOCYTES % (AUTO) 22 % (22-44); MD NO; MEAN CORPUSCULAR HGB CONC 34.1 g/dL (33.2-36.2); MEAN CORPUSCULAR VOLUME 88.1 fL (81-97); MEAN PLATELET VOLUME 7.4 fL (7.4-10.4); MONOCYTES # (AUTO) 0.69 x10^3/uL (0.2-0.8); MONOCYTES % (AUTO) 8 % (2-9); NEUTROPHILS # (AUTO) 5.96 x10^3/uL (1.8-6.8); NEUTROPHILS % (AUTO) 68 % (42-75); PLATELET COUNT 330 x10^3/uL (130-400); RED BLOOD COUNT 4.93 x10^6/uL (4.38-5.82)
[2018-01-16 10:55] LABS: ALBUMIN 3.1 g/dL (3.4-5.0); ANION GAP 3 mmol/L (5-15); CALCIUM 9.1 mg/dL (8.5-10.1); CHLORIDE 105 mmol/L (98-107)
[2018-01-16 10:58] LABS: ALANINE AMINOTRANSFERASE 25 U/L (12-78); ALKALINE PHOSPHATASE 72 U/L (45-117); BILIRUBIN,TOTAL 0.5 mg/dL (0.2-1.0); C-REACTIVE PROTEIN, QUANT 0.21 mg/dL (0.02-0.49); CREATININE 0.97 mg/dL (0.7-1.3); TOTAL PROTEIN 7.5 g/dL (6.4-8.2)
[2018-01-16 11:13] LABS: HCT (SEDRATE) 43.4 % (39.2-51.8)
[2018-01-16 12:06] VITALS: BP 118/72
[2018-01-16 19:09] VITALS: BP 127/76
[2018-01-16] MEDS: ENOXAPARIN 40 MG/0.4 ML SQ SCH (19:50)
[2018-01-16] MEDS: INSULIN GLARGINE 100 UNITS/ML, PEN SQ-INSULIN SCH (21:10)
[2018-01-17] MEDS: AMPICILLIN/SULBACTAM 3 GM in SODIUM CHLORIDE 0.9% 100 ML IV SCH ×4 (03:32→21:52)
[2018-01-17] MEDS: INSULIN LISPRO 100 UNITS/ML, PEN SQ-INSULIN SCH ×4 (07:00→22:22)
[2018-01-17 07:20] VITALS: BP 124/77
[2018-01-17] MEDS: LACTOBACILLUS CHEW TABLET PO SCH ×3 (09:06→21:52)
[2018-01-17 20:04] VITALS: BP 131/85
[2018-01-17] MEDS: ENOXAPARIN 40 MG/0.4 ML SQ SCH (21:00)
[2018-01-17] MEDS: INSULIN GLARGINE 100 UNITS/ML, PEN SQ-INSULIN SCH (22:22)
[2018-01-18] MEDS: AMPICILLIN/SULBACTAM 3 GM in SODIUM CHLORIDE 0.9% 100 ML IV SCH ×4 (03:04→21:09)
[2018-01-18 06:43] VITALS: BP 133/80
[2018-01-18] MEDS: INSULIN LISPRO 100 UNITS/ML, PEN SQ-INSULIN SCH ×4 (07:51→21:10)
[2018-01-18] MEDS: LACTOBACILLUS CHEW TABLET PO SCH ×3 (09:06→21:09)
[2018-01-18 19:11] VITALS: BP 136/79
[2018-01-18] MEDS: ENOXAPARIN 40 MG/0.4 ML SQ SCH (20:37)
[2018-01-18] MEDS: INSULIN GLARGINE 100 UNITS/ML, PEN SQ-INSULIN SCH (21:10)
[2018-01-19] MEDS: AMPICILLIN/SULBACTAM 3 GM in SODIUM CHLORIDE 0.9% 100 ML IV SCH ×4 (03:08→20:27)
[2018-01-19] MEDS: INSULIN LISPRO 100 UNITS/ML, PEN SQ-INSULIN SCH ×4 (07:51→20:27)
[2018-01-19 08:16] VITALS: BP 100/69
[2018-01-19] MEDS: LACTOBACILLUS CHEW TABLET PO SCH ×3 (08:55→20:27)
[2018-01-19 18:54] VITALS: BP 108/72
[2018-01-19] MEDS: ENOXAPARIN 40 MG/0.4 ML SQ SCH (19:50)
[2018-01-19] MEDS: INSULIN GLARGINE 100 UNITS/ML, PEN SQ-INSULIN SCH (20:28)
[2018-01-20] MEDS: AMPICILLIN/SULBACTAM 3 GM in SODIUM CHLORIDE 0.9% 100 ML IV SCH ×4 (03:21→21:03)
[2018-01-20] MEDS: INSULIN LISPRO 100 UNITS/ML, PEN SQ-INSULIN SCH ×4 (07:00→21:01)
[2018-01-20 08:29] VITALS: BP 113/68
[2018-01-20] MEDS: LACTOBACILLUS CHEW TABLET PO SCH ×3 (08:32→21:02)
[2018-01-20 18:40] VITALS: BP 131/80
[2018-01-20] MEDS: ENOXAPARIN 40 MG/0.4 ML SQ SCH (21:00)
[2018-01-20] MEDS: INSULIN GLARGINE 100 UNITS/ML, PEN SQ-INSULIN SCH (21:16)
[2018-01-21] MEDS: AMPICILLIN/SULBACTAM 3 GM in SODIUM CHLORIDE 0.9% 100 ML IV SCH ×4 (03:21→21:11)
[2018-01-21] MEDS: INSULIN LISPRO 100 UNITS/ML, PEN SQ-INSULIN SCH ×4 (07:48→21:12)
[2018-01-21 07:57] VITALS: BP 103/71
[2018-01-21] MEDS: LACTOBACILLUS CHEW TABLET PO SCH ×3 (08:42→21:11)
[2018-01-21 19:31] VITALS: BP 134/61
[2018-01-21 19:40] VITALS: BP 117/74
[2018-01-21] MEDS: ENOXAPARIN 40 MG/0.4 ML SQ SCH (21:00)
[2018-01-21] MEDS: INSULIN GLARGINE 100 UNITS/ML, PEN SQ-INSULIN SCH (21:11)
[2018-01-22] MEDS: AMPICILLIN/SULBACTAM 3 GM in SODIUM CHLORIDE 0.9% 100 ML IV SCH ×4 (03:55→21:37)
[2018-01-22 06:44] VITALS: BP 119/77
[2018-01-22] MEDS: INSULIN LISPRO 100 UNITS/ML, PEN SQ-INSULIN SCH ×4 (07:00→21:30)
[2018-01-22] MEDS: LACTOBACILLUS CHEW TABLET PO SCH ×3 (08:24→21:29)
[2018-01-22 19:10] VITALS: BP 117/70
[2018-01-22] MEDS: ENOXAPARIN 40 MG/0.4 ML SQ SCH (21:00)
[2018-01-22] MEDS: INSULIN GLARGINE 100 UNITS/ML, PEN SQ-INSULIN SCH (21:30)
[2018-01-23] MEDS: AMPICILLIN/SULBACTAM 3 GM in SODIUM CHLORIDE 0.9% 100 ML IV SCH ×4 (03:54→21:46)
[2018-01-23 06:50] LABS: BASOPHILS # (AUTO) 0.02 x10^3/uL (0-0.1); BASOPHILS % (AUTO) 0 % (0-1); EOSINOPHILS # (AUTO) 0.23 x10^3/uL (0-0.4); EOSINOPHILS % (AUTO) 3 % (1-7); LYMPHOCYTES # (AUTO) 1.57 x10^3/uL (1-3.4); LYMPHOCYTES % (AUTO) 20 % (22-44); MD NO; MEAN CORPUSCULAR HEMOGLOBIN 30.2 pg (27.5-34.5); MEAN CORPUSCULAR HGB CONC 34.3 g/dL (33.2-36.2); MEAN CORPUSCULAR VOLUME 88.1 fL (81-97); MEAN PLATELET VOLUME 7.6 fL (7.4-10.4); MONOCYTES # (AUTO) 0.62 x10^3/uL (0.2-0.8); MONOCYTES % (AUTO) 8 % (2-9); NEUTROPHILS # (AUTO) 5.55 x10^3/uL (1.8-6.8); NEUTROPHILS % (AUTO) 70 % (42-75); PLATELET COUNT 313 x10^3/uL (130-400); RED CELL DISTRIBUTION WIDTH 13.8 % (9.4-14.8)
[2018-01-23 06:59] LABS: ANION GAP 8 mmol/L (5-15); CALCIUM 8.7 mg/dL (8.5-10.1); CHLORIDE 108 mmol/L (98-107)
[2018-01-23 07:00] LABS: HCT (SEDRATE) 42.3 % (39.2-51.8)
[2018-01-23] MEDS: INSULIN LISPRO 100 UNITS/ML, PEN SQ-INSULIN SCH ×4 (07:00→21:46)
[2018-01-23 07:04] LABS: ALANINE AMINOTRANSFERASE 28 U/L (12-78); ALKALINE PHOSPHATASE 67 U/L (45-117); BILIRUBIN,TOTAL 0.4 mg/dL (0.2-1.0); C-REACTIVE PROTEIN, QUANT 0.22 mg/dL (0.02-0.49); CREATININE 0.83 mg/dL (0.7-1.3); TOTAL PROTEIN 7.1 g/dL (6.4-8.2)
[2018-01-23] MEDS ORDERED: morphine SULFATE 10 MG/ML, 1ML IVPush PRN (07:30)
[2018-01-23 07:42] VITALS: BP 110/71
[2018-01-23] MEDS: LACTOBACILLUS CHEW TABLET PO SCH ×3 (08:33→21:44)
[2018-01-23] MEDS ORDERED: OXYcodone IR 5MG TABLET PO PRN (09:30)
[2018-01-23 19:09] VITALS: BP 137/81
[2018-01-23] MEDS: ENOXAPARIN 40 MG/0.4 ML SQ SCH (21:00)
[2018-01-23] MEDS: INSULIN GLARGINE 100 UNITS/ML, PEN SQ-INSULIN SCH (21:45)
[2018-01-24] MEDS: AMPICILLIN/SULBACTAM 3 GM in SODIUM CHLORIDE 0.9% 100 ML IV SCH ×4 (04:16→22:10)
[2018-01-24] MEDS: INSULIN LISPRO 100 UNITS/ML, PEN SQ-INSULIN SCH ×4 (08:15→20:52)
[2018-01-24] MEDS: LACTOBACILLUS CHEW TABLET PO SCH ×3 (08:15→20:39)
[2018-01-24] MEDS: FLUCONAZOLE 200 MG TABLET PO SCH (08:15)
[2018-01-24 08:35] VITALS: BP 100/66
[2018-01-24] MEDS: ENOXAPARIN 40 MG/0.4 ML SQ SCH (20:40)
[2018-01-24 20:48] VITALS: BP 126/79
[2018-01-24] MEDS: INSULIN GLARGINE 100 UNITS/ML, PEN SQ-INSULIN SCH (20:52)
[2018-01-25] MEDS: AMPICILLIN/SULBACTAM 3 GM in SODIUM CHLORIDE 0.9% 100 ML IV SCH ×4 (04:02→22:24)
[2018-01-25 07:07] VITALS: BP 107/68
[2018-01-25] MEDS: INSULIN LISPRO 100 UNITS/ML, PEN SQ-INSULIN SCH ×4 (08:32→21:31)
[2018-01-25] MEDS: LACTOBACILLUS CHEW TABLET PO SCH ×3 (08:33→21:30)
[2018-01-25] MEDS: FLUCONAZOLE 200 MG TABLET PO SCH (08:33)
[2018-01-25 18:43] VITALS: BP 100/66
[2018-01-25] MEDS: ENOXAPARIN 40 MG/0.4 ML SQ SCH (21:00)
[2018-01-25] MEDS ORDERED: INSULIN GLARGINE 100 UNITS/ML, PEN SQ-INSULIN SCH (21:00)
[2018-01-26] MEDS: AMPICILLIN/SULBACTAM 3 GM in SODIUM CHLORIDE 0.9% 100 ML IV SCH ×4 (04:02→20:11)
[2018-01-26 07:12] VITALS: BP 139/77
[2018-01-26] MEDS: INSULIN LISPRO 100 UNITS/ML, PEN SQ-INSULIN SCH ×4 (07:36→20:11)
[2018-01-26] MEDS: LACTOBACILLUS CHEW TABLET PO SCH ×3 (07:36→20:10)
[2018-01-26] MEDS: FLUCONAZOLE 200 MG TABLET PO SCH (07:36)
[2018-01-26 12:50] VITALS: BP 120/80
[2018-01-26 18:44] VITALS: BP 113/77
[2018-01-26] MEDS: ENOXAPARIN 40 MG/0.4 ML SQ SCH (20:50)
[2018-01-26] MEDS ORDERED: INSULIN GLARGINE 100 UNITS/ML, PEN SQ-INSULIN SCH (21:00)
[2018-01-27] MEDS: AMPICILLIN/SULBACTAM 3 GM in SODIUM CHLORIDE 0.9% 100 ML IV SCH ×4 (04:29→20:21)
[2018-01-27 07:10] VITALS: BP 106/71
[2018-01-27] MEDS: LACTOBACILLUS CHEW TABLET PO SCH ×3 (08:30→20:21)
[2018-01-27] MEDS: FLUCONAZOLE 200 MG TABLET PO SCH (08:31)
[2018-01-27] MEDS: INSULIN LISPRO 100 UNITS/ML, PEN SQ-INSULIN SCH ×4 (08:31→20:27)
[2018-01-27 18:53] VITALS: BP 120/78
[2018-01-27] MEDS: INSULIN GLARGINE 100 UNITS/ML, PEN SQ-INSULIN SCH (20:26)
[2018-01-27] MEDS: ENOXAPARIN 40 MG/0.4 ML SQ SCH (20:27)
[2018-01-28] MEDS: AMPICILLIN/SULBACTAM 3 GM in SODIUM CHLORIDE 0.9% 100 ML IV SCH ×4 (03:33→21:59)
[2018-01-28 07:00] VITALS: BP 114/74
[2018-01-28] MEDS: INSULIN LISPRO 100 UNITS/ML, PEN SQ-INSULIN SCH ×4 (07:00→20:33)
[2018-01-28] MEDS: FLUCONAZOLE 200 MG TABLET PO SCH (07:45)
[2018-01-28] MEDS: LACTOBACILLUS CHEW TABLET PO SCH ×3 (07:45→20:32)
[2018-01-28 13:00] VITALS: BP 126/78
[2018-01-28 20:32] VITALS: BP 127/81
[2018-01-28] MEDS: INSULIN GLARGINE 100 UNITS/ML, PEN SQ-INSULIN SCH (20:33)
[2018-01-28] MEDS: ENOXAPARIN 40 MG/0.4 ML SQ SCH (20:33)
[2018-01-29] MEDS: AMPICILLIN/SULBACTAM 3 GM in SODIUM CHLORIDE 0.9% 100 ML IV SCH ×4 (03:27→22:26)
[2018-01-29] MEDS: INSULIN LISPRO 100 UNITS/ML, PEN SQ-INSULIN SCH ×4 (07:00→20:10)
[2018-01-29 07:04] VITALS: BP 116/73
[2018-01-29] MEDS: LACTOBACILLUS CHEW TABLET PO SCH ×3 (09:50→20:08)
[2018-01-29] MEDS: FLUCONAZOLE 200 MG TABLET PO SCH (09:51)
[2018-01-29 12:38] VITALS: BP 110/69
[2018-01-29 19:55] VITALS: BP 132/73
[2018-01-29] MEDS: ENOXAPARIN 40 MG/0.4 ML SQ SCH (20:08)
[2018-01-29] MEDS ORDERED: INSULIN GLARGINE 100 UNITS/ML, PEN SQ-INSULIN SCH (21:00)
[2018-01-30] MEDS: AMPICILLIN/SULBACTAM 3 GM in SODIUM CHLORIDE 0.9% 100 ML IV SCH ×4 (03:53→22:38)
[2018-01-30 05:57] LABS: HCT (SEDRATE) 43.3 % (39.2-51.8)
[2018-01-30 05:59] LABS: BASOPHILS # (AUTO) 0.02 x10^3/uL (0-0.1); BASOPHILS % (AUTO) 0 % (0-1); EOSINOPHILS % (AUTO) 2 % (1-7); LYMPHOCYTES % (AUTO) 30 % (22-44); MD NO; MEAN CORPUSCULAR HEMOGLOBIN 30.4 pg (27.5-34.5); MEAN CORPUSCULAR HGB CONC 33.7 g/dL (33.2-36.2); MEAN CORPUSCULAR VOLUME 90.2 fL (81-97); MEAN PLATELET VOLUME 8.2 fL (7.4-10.4); MONOCYTES # (AUTO) 0.71 x10^3/uL (0.2-0.8); MONOCYTES % (AUTO) 8 % (2-9); NEUTROPHILS # (AUTO) 5.12 x10^3/uL (1.8-6.8); NEUTROPHILS % (AUTO) 59 % (42-75); PLATELET COUNT 317 x10^3/uL (130-400); RED BLOOD COUNT 4.85 x10^6/uL (4.38-5.82); RED CELL DISTRIBUTION WIDTH 13.7 % (9.4-14.8)
[2018-01-30 06:04] LABS: CHLORIDE 107 mmol/L (98-107)
[2018-01-30 06:13] LABS: ALANINE AMINOTRANSFERASE 29 U/L (12-78); ALBUMIN 3.2 g/dL (3.4-5.0); ALKALINE PHOSPHATASE 68 U/L (45-117); ANION GAP 10 mmol/L (5-15); BILIRUBIN,TOTAL 0.7 mg/dL (0.2-1.0); C-REACTIVE PROTEIN, QUANT 0.92 mg/dL (0.02-0.49); CREATININE 0.89 mg/dL (0.7-1.3); TOTAL PROTEIN 7.4 g/dL (6.4-8.2)
[2018-01-30] MEDS: INSULIN LISPRO 100 UNITS/ML, PEN SQ-INSULIN SCH ×4 (07:00→20:17)
[2018-01-30 07:11] VITALS: BP 121/70
[2018-01-30] MEDS: LACTOBACILLUS CHEW TABLET PO SCH ×3 (08:35→20:25)
[2018-01-30] MEDS: FLUCONAZOLE 200 MG TABLET PO SCH (08:36)
[2018-01-30 12:14] VITALS: BP 107/69
[2018-01-30] MEDS: ENOXAPARIN 40 MG/0.4 ML SQ SCH (19:16)
[2018-01-30 19:32] VITALS: BP 99/66
[2018-01-30] MEDS: INSULIN GLARGINE 100 UNITS/ML, PEN SQ-INSULIN SCH (20:25)
[2018-01-31] MEDS: AMPICILLIN/SULBACTAM 3 GM in SODIUM CHLORIDE 0.9% 100 ML IV SCH ×4 (05:07→23:06)
[2018-01-31 06:30] VITALS: BP 113/75
[2018-01-31] MEDS: INSULIN LISPRO 100 UNITS/ML, PEN SQ-INSULIN SCH ×4 (07:00→20:55)
[2018-01-31] MEDS: LACTOBACILLUS CHEW TABLET PO SCH ×3 (07:30→20:54)
[2018-01-31] MEDS: FLUCONAZOLE 200 MG TABLET PO SCH (07:31)
[2018-01-31] MEDS: ENOXAPARIN 40 MG/0.4 ML SQ SCH (19:14)
[2018-01-31 20:31] VITALS: BP 118/73
[2018-01-31] MEDS: INSULIN GLARGINE 100 UNITS/ML, PEN SQ-INSULIN SCH (20:55)
[2018-02-01] MEDS: AMPICILLIN/SULBACTAM 3 GM in SODIUM CHLORIDE 0.9% 100 ML IV SCH ×4 (04:46→23:24)
[2018-02-01 06:49] VITALS: BP 119/75
[2018-02-01] MEDS: INSULIN LISPRO 100 UNITS/ML, PEN SQ-INSULIN SCH ×4 (07:00→20:44)
[2018-02-01] MEDS: FLUCONAZOLE 200 MG TABLET PO SCH (08:15)
[2018-02-01] MEDS: LACTOBACILLUS CHEW TABLET PO SCH ×3 (08:17→20:48)
[2018-02-01 19:19] VITALS: BP 119/76
[2018-02-01] MEDS: INSULIN GLARGINE 100 UNITS/ML, PEN SQ-INSULIN SCH (20:49)
[2018-02-01] MEDS: ENOXAPARIN 40 MG/0.4 ML SQ SCH (21:00)
[2018-02-02] MEDS: AMPICILLIN/SULBACTAM 3 GM in SODIUM CHLORIDE 0.9% 100 ML IV SCH ×4 (05:06→23:07)
[2018-02-02] MEDS: INSULIN LISPRO 100 UNITS/ML, PEN SQ-INSULIN SCH ×4 (07:00→20:38)
[2018-02-02 08:30] VITALS: BP 106/74
[2018-02-02] MEDS: LACTOBACILLUS CHEW TABLET PO SCH ×3 (12:00→20:30)
[2018-02-02] MEDS: FLUCONAZOLE 200 MG TABLET PO SCH (12:01)
[2018-02-02 20:00] VITALS: BP 122/73
[2018-02-02] MEDS: ENOXAPARIN 40 MG/0.4 ML SQ SCH (20:30)
[2018-02-02] MEDS: INSULIN GLARGINE 100 UNITS/ML, PEN SQ-INSULIN SCH (20:39)
[2018-02-03 00:39] VITALS: BP 126/77
[2018-02-03] MEDS: AMPICILLIN/SULBACTAM 3 GM in SODIUM CHLORIDE 0.9% 100 ML IV SCH ×3 (04:46→19:07)
[2018-02-03 08:00] VITALS: BP 92/64
[2018-02-03] MEDS: INSULIN LISPRO 100 UNITS/ML, PEN SQ-INSULIN SCH ×4 (08:38→20:37)
[2018-02-03] MEDS: FLUCONAZOLE 200 MG TABLET PO SCH (08:41)
[2018-02-03] MEDS: LACTOBACILLUS CHEW TABLET PO SCH ×3 (08:41→21:00)
[2018-02-03 14:04] VITALS: BP 119/73
[2018-02-03 19:20] VITALS: BP 132/77
[2018-02-03] MEDS: INSULIN GLARGINE 100 UNITS/ML, PEN SQ-INSULIN SCH (20:37)
[2018-02-03] MEDS: ENOXAPARIN 40 MG/0.4 ML SQ SCH (21:00)
[2018-02-04] MEDS: AMPICILLIN/SULBACTAM 3 GM in SODIUM CHLORIDE 0.9% 100 ML IV SCH ×4 (00:59→19:06)
[2018-02-04 07:07] VITALS: BP 96/66
[2018-02-04] MEDS: INSULIN LISPRO 100 UNITS/ML, PEN SQ-INSULIN SCH ×4 (07:43→21:00)
[2018-02-04] MEDS: FLUCONAZOLE 200 MG TABLET PO SCH (07:44)
[2018-02-04] MEDS: LACTOBACILLUS CHEW TABLET PO SCH ×3 (07:44→20:11)
[2018-02-04] MEDS: ENOXAPARIN 40 MG/0.4 ML SQ SCH (20:11)
[2018-02-04 20:22] VITALS: BP 128/78
[2018-02-04] MEDS: INSULIN GLARGINE 100 UNITS/ML, PEN SQ-INSULIN SCH (21:18)
[2018-02-05] MEDS: AMPICILLIN/SULBACTAM 3 GM in SODIUM CHLORIDE 0.9% 100 ML IV SCH ×4 (01:12→18:31)
[2018-02-05 07:20] VITALS: BP 136/82
[2018-02-05] MEDS: LACTOBACILLUS CHEW TABLET PO SCH ×3 (07:38→21:10)
[2018-02-05] MEDS: FLUCONAZOLE 200 MG TABLET PO SCH (07:39)
[2018-02-05] MEDS: INSULIN LISPRO 100 UNITS/ML, PEN SQ-INSULIN SCH ×4 (07:40→21:16)
[2018-02-05 20:00] VITALS: BP_SYST 127
[2018-02-05] MEDS: ENOXAPARIN 40 MG/0.4 ML SQ SCH (21:00)
[2018-02-05] MEDS: INSULIN GLARGINE 100 UNITS/ML, PEN SQ-INSULIN SCH (21:16)
[2018-02-06 00:44] VITALS: BP 125/78
[2018-02-06] MEDS: AMPICILLIN/SULBACTAM 3 GM in SODIUM CHLORIDE 0.9% 100 ML IV SCH ×4 (00:56→19:45)
[2018-02-06 04:34] LABS: BASOPHILS # (AUTO) 0.02 x10^3/uL (0-0.1); BASOPHILS % (AUTO) 0 % (0-1); EOSINOPHILS # (AUTO) 0.24 x10^3/uL (0-0.4); EOSINOPHILS % (AUTO) 3 % (1-7); LYMPHOCYTES # (AUTO) 1.92 x10^3/uL (1-3.4); LYMPHOCYTES % (AUTO) 24 % (22-44); MD NO; MEAN CORPUSCULAR HEMOGLOBIN 30.3 pg (27.5-34.5); MEAN PLATELET VOLUME 7.9 fL (7.4-10.4); MONOCYTES # (AUTO) 0.71 x10^3/uL (0.2-0.8); MONOCYTES % (AUTO) 9 % (2-9); NEUTROPHILS # (AUTO) 5.24 x10^3/uL (1.8-6.8); NEUTROPHILS % (AUTO) 64 % (42-75); PLATELET COUNT 316 x10^3/uL (130-400); RED BLOOD COUNT 4.77 x10^6/uL (4.38-5.82); RED CELL DISTRIBUTION WIDTH 13.6 % (9.4-14.8)
[2018-02-06 04:37] LABS: HCT (SEDRATE) 42.5 % (39.2-51.8)
[2018-02-06 04:44] LABS: ALANINE AMINOTRANSFERASE 29 U/L (12-78); ALBUMIN 3.2 g/dL (3.4-5.0); ANION GAP 7 mmol/L (5-15); C-REACTIVE PROTEIN, QUANT 0.26 mg/dL (0.02-0.49); CALCIUM 9.2 mg/dL (8.5-10.1); CHLORIDE 108 mmol/L (98-107)
[2018-02-06 04:47] LABS: ALKALINE PHOSPHATASE 68 U/L (45-117); BILIRUBIN,TOTAL 0.5 mg/dL (0.2-1.0); CREATININE 0.85 mg/dL (0.7-1.3); TOTAL PROTEIN 7.3 g/dL (6.4-8.2)
[2018-02-06 06:53] VITALS: BP 129/83
[2018-02-06] MEDS: INSULIN LISPRO 100 UNITS/ML, PEN SQ-INSULIN SCH ×4 (08:00→21:27)
[2018-02-06] MEDS: FLUCONAZOLE 200 MG TABLET PO SCH (08:06)
[2018-02-06] MEDS: LACTOBACILLUS CHEW TABLET PO SCH ×3 (08:06→20:59)
[2018-02-06 19:16] VITALS: BP 115/80
[2018-02-06] MEDS: ENOXAPARIN 40 MG/0.4 ML SQ SCH (21:00)
[2018-02-06] MEDS: INSULIN GLARGINE 100 UNITS/ML, PEN SQ-INSULIN SCH (21:27)
[2018-02-07] MEDS: AMPICILLIN/SULBACTAM 3 GM in SODIUM CHLORIDE 0.9% 100 ML IV SCH ×4 (01:56→20:06)
[2018-02-07] MEDS: INSULIN LISPRO 100 UNITS/ML, PEN SQ-INSULIN SCH ×4 (07:00→20:08)
[2018-02-07 07:41] VITALS: BP 121/76
[2018-02-07] MEDS: LACTOBACILLUS CHEW TABLET PO SCH ×3 (08:22→21:08)
[2018-02-07] MEDS: FLUCONAZOLE 200 MG TABLET PO SCH (08:22)
[2018-02-07 19:39] VITALS: BP 119/73
[2018-02-07] MEDS: ENOXAPARIN 40 MG/0.4 ML SQ SCH (20:02)
[2018-02-07] MEDS: INSULIN GLARGINE 100 UNITS/ML, PEN SQ-INSULIN SCH (21:08)
[2018-02-08] MEDS: AMPICILLIN/SULBACTAM 3 GM in SODIUM CHLORIDE 0.9% 100 ML IV SCH ×4 (01:54→20:49)
[2018-02-08 07:38] VITALS: BP 94/42
[2018-02-08] MEDS: LACTOBACILLUS CHEW TABLET PO SCH ×3 (07:53→20:49)
[2018-02-08] MEDS: FLUCONAZOLE 200 MG TABLET PO SCH (07:54)
[2018-02-08] MEDS: INSULIN LISPRO 100 UNITS/ML, PEN SQ-INSULIN SCH ×4 (07:58→20:48)
[2018-02-08 20:33] VITALS: BP 123/75
[2018-02-08] MEDS: ENOXAPARIN 40 MG/0.4 ML SQ SCH (20:51)
[2018-02-08] MEDS: INSULIN GLARGINE 100 UNITS/ML, PEN SQ-INSULIN SCH (21:41)
[2018-02-09] MEDS: AMPICILLIN/SULBACTAM 3 GM in SODIUM CHLORIDE 0.9% 100 ML IV SCH ×4 (02:52→20:56)
[2018-02-09] MEDS: INSULIN LISPRO 100 UNITS/ML, PEN SQ-INSULIN SCH ×4 (07:00→20:59)
[2018-02-09 07:45] VITALS: BP 133/85
[2018-02-09] MEDS: FLUCONAZOLE 200 MG TABLET PO SCH (08:22)
[2018-02-09] MEDS: LACTOBACILLUS CHEW TABLET PO SCH ×3 (08:22→20:56)
[2018-02-09] MEDS ORDERED: INSU100I13 SQ-INSULIN (12:19)
[2018-02-09] MEDS ORDERED: AMOX1TAB64 PO (12:19)
[2018-02-09] MEDS ORDERED: FLUC200T PO (12:19)
[2018-02-09] MEDS ORDERED: GABA300C10 PO (12:19)
[2018-02-09] MEDS ORDERED: INSU100I11 SQ-INSULIN (12:19)
[2018-02-09 20:49] VITALS: BP 152/95
[2018-02-09] MEDS: ENOXAPARIN 40 MG/0.4 ML SQ SCH (21:00)
[2018-02-09] MEDS: INSULIN GLARGINE 100 UNITS/ML, PEN SQ-INSULIN SCH (21:01)
[2018-02-10] MEDS: AMPICILLIN/SULBACTAM 3 GM in SODIUM CHLORIDE 0.9% 100 ML IV SCH ×2 (02:54→09:34)
[2018-02-10] MEDS: INSULIN LISPRO 100 UNITS/ML, PEN SQ-INSULIN SCH ×2 (07:00→11:58)
[2018-02-10 07:22] VITALS: BP 105/67
[2018-02-10] MEDS: LACTOBACILLUS CHEW TABLET PO SCH (09:40)
[2018-02-10] MEDS: FLUCONAZOLE 200 MG TABLET PO SCH (09:40)
== END 2018-02-10 13:59 | disposition home or self-care (01) | DRG 854 ==
LOC: ED 22:26 → EDIP 12-23 01:26 → 3NW 12-23 01:38 → 3NE 01-10 11:40
PROVIDERS: ADMIT Internal Medicine; ATTEND Family Medicine
PROC: 0JBR0ZZ Excision of Left Foot Subcutaneous Tissue and Fascia, Open Approach (ICD-10-PCS; principal; 2017-12-29 11:00)
DX: A41.9 Sepsis, unspecified organism (principal); E44.0 Moderate protein-calorie malnutrition; L02.612 Cutaneous abscess of left foot; L03.811 Cellulitis of head [any part, except face]; L03.116 Cellulitis of left lower limb; M86.8X7 Other osteomyelitis, ankle and foot; B95.61 Methicillin susceptible Staphylococcus aureus infection as the cause of diseases classified elsewhere; D63.8 Anemia in other chronic diseases classified elsewhere; E11.621 Type 2 diabetes mellitus with foot ulcer; E11.65 Type 2 diabetes mellitus with hyperglycemia; E11.69 Type 2 diabetes mellitus with other specified complication; Z68.28 Body mass index [BMI] 28.0-28.9, adult; I87.2 Venous insufficiency (chronic) (peripheral); L97.529 Non-pressure chronic ulcer of other part of left foot with unspecified severity; R19.7 Diarrhea, unspecified; Z79.4 Long term (current) use of insulin
CPT/HCPCS: 36415; 80048; 80053; 80061; 80202; 82040; 82962; 83036; 83605; 83735; 84145; 84439; 84443; 85025; 85610; 85651; 86140; 87015; 87040; 87070; 87075; 87077; 87102; 87106; 87116; 87147; 87176; 87186; 87205; 87206; 87324; 93005; 96365; 96366; 96368; 96375; A9585; G0378; J0295; J1650; J2543; J2704; J3010; J3370; J1815; J7030; J7050